=== PATIENT | female | born 1995 | race Asian ===

== ENCOUNTER 2020-09-30 07:11 | Day surgery (SDC) | payer OTHER ==
[2020-09-29 12:20] VITALS: BMI 20.7
[2020-09-30] MEDS ORDERED: Lidocaine 1% w/Epinephrine 1:100K 20 ML VIAL ONE (08:20)
[2020-09-30] MEDS ORDERED: Midazolam HCl 2 mg/2 ml Vial ONE (08:29)
[2020-09-30] MEDS ORDERED: Fentanyl 100 MCG/2 ML VIAL ONE ×2 (08:32→10:29)
[2020-09-30] MEDS ORDERED: PROPOFOL 200 MG/20 ML VIAL ONE (08:52)
[2020-09-30] MEDS ORDERED: Dexamethasone 20 MG/5 ML VIAL ONE (08:52)
[2020-09-30] MEDS ORDERED: Lidocaine 1% PF 5 ML VIAL ONE (08:52)
[2020-09-30] MEDS ORDERED: PHENYLEPHRINE-NS 100 MCG/ML 10 ML SYRINGE ONE (08:52)
[2020-09-30] MEDS ORDERED: Ondansetron PF 4 MG/2 ML Vial ONE (08:52)
[2020-09-30 09:01] LABS: BHCG - Serum Negative (NEGATIVE); Pregs Control Background? CLEAR/WHITE (CLR/WHITE); Pregs Control Bar Appear? YES (CONTROL BAR)
[2020-09-30] MEDS ORDERED: Bacitracin Zinc Ointment 30 gm TUBE ONE (09:57)
== END 2020-09-30 12:27 | disposition home or self-care (01) ==
LOC: SDC 07:11
PROVIDERS: ATTEND Student in an Organized Health Care Education/Training Program
PROC: 0JB50ZZ Excision of Left Neck Subcutaneous Tissue and Fascia, Open Approach (ICD-10-PCS; principal; 2020-09-30)
DX: Q18.0 Sinus, fistula and cyst of branchial cleft (principal); J45.909 Unspecified asthma, uncomplicated
CPT/HCPCS: 84703; 85014; 88305; J1100; J2250; J2405; J2704; J3010